=== PATIENT | female | born 1965 | race Caucasian/White ===

== ENCOUNTER 2020-12-29 12:50 | Day surgery (SDC) | payer OTHER ==
[~2020-12-29 12:50] MED LIST: ATACAND HCT 161 EACH PO; SINGULAIR10 MG PO; SYNTHROID125 MCG PO
== END 2020-12-30 02:35 | disposition home or self-care (01) ==
LOC: CIR.AMB 12:50
PROVIDERS: ATTEND Student in an Organized Health Care Education/Training Program
DX: N95.0 Postmenopausal bleeding (principal); Z20.822 Contact with and (suspected) exposure to COVID-19

== ENCOUNTER 2022-06-27 06:45 | Day surgery (SDC) | payer OTHER ==
[~2022-06-27 06:45] MED LIST changes: +ZYRTEC10 M3 PO
== END 2022-06-27 19:30 | disposition home or self-care (01) ==
LOC: CIR.AMB 06:45
PROVIDERS: ATTEND Specialist
DX: N95.0 Postmenopausal bleeding (principal); N85.02 Endometrial intraepithelial neoplasia [EIN]; E03.9 Hypothyroidism, unspecified; Z20.822 Contact with and (suspected) exposure to COVID-19